=== PATIENT | male | born 1960 | race Caucasian/White ===

== ENCOUNTER 2017-02-08 14:29 | Inpatient (IN) | payer MEDICAID ==
[2017-02-08 15:19] LABS: % IMMATURE GRANULYOCYTES 0.3 % (0.0-1.1); ABSOLUTE IMMATURE GRANULOCYTES 0.01 10^3/uL (0.00-0.10); ADD DIFF? NO; ADD MORPH? NO; ADD SCAN? NO; ATYPICAL LYMPHOCYTE FLAG 10 (0-99); FRAGMENT RBC FLAG 0 (0-99); HEMATOCRIT 41.1 % (40.0-51.0); LEFT SHIFT FLG 0 (0-99); LIPEMIA HEMOLYSIS FLAG 90 (0-99); MEAN CELL HEMOGLOBIN 29.5 pg (27.9-34.1); MEAN CELL HEMOGLOBIN CONCENTR. 34.1 g/dL (32.4-36.7); MEAN CELL VOLUME 86.7 fL (81.5-99.8); MEAN PLATELET VOLUME 10.3 fL (8.7-11.7); PLATELET CLUMPS FLAG 0 (0-99); PLATELET COUNT 231 10^3/uL (150-400); RED BLOOD CELL COUNT 4.74 10^6/uL (4.40-6.38); RED CELL DISTRIBUTION WIDTH 13.8 % (11.5-15.2)
--- NOTE | 2017-02-08 15:19 | EDPHY ---
Mental Health General Previous Psychiatric History: previous inpatient psychiatric admission, previous ED visit related to suicidal ideations, substance abuse Smoking Status: Former smoker Time Patient Placed on Detainer: 15:10 Time Medically Cleared for Psychiatric Evaluation: 16:17 Time of Transfer of Care: 18:[address]:: Jeromy <Quynh Davidson - Last Filed: 02/08/17 17:45> <Anabelle Ruggiero - Last Filed: 02/09/17 06:38> Course: patient remained stable over course of my shift <Sergei Webster - Last Filed: 02/09/17 14:46> <Arvin Delgado - Last Filed: 02/10/17 05:53> <Abhinav Pinzon - Last Filed: 02/10/17 09:37> <Arthur Palencia - Last Filed: 02/10/17 11:55> Narrative: CHIEF COMPLAINT: suicidal ideations HISTORY OF PRESENT ILLNESS: 56-year-old male presents emergency department voluntarily for suicidal ideations. Patient has a history of depression, reports he stops taking his depression medicine 1 month ago. Patient reports increasing depression over the last couple months. He reports a plan to commit suicide with an insulin overdose. Patient is an insulin-dependent diabetic. Patient reports increased life stressors with financial problems. He reports a cocaine abuse history, no use for 1 month due to lack of finances. He denies other drug use. No alcohol use. He reports he has no access to a firearm. Patient denies homicidal ideations, auditory or visual hallucinations. Patient has a brother in [place] who convinced him to come to the emergency department today, his roommate drove him here. Patient reports he has been checking his blood sugars less and taking less insulin than he usually does also. REVIEW OF SYSTEMS: A comprehensive 10 point review of systems is otherwise negative aside from elements mentioned in the history of present illness. Physical Exam Gen: Alert and Oriented, NAD HEENT: PERRL, moist mucous membranes NECK: no meningismus CV: regular rate and regular rhythm PULM: CTAB, no wheezes ABDOMEN: soft, non tender to palpation, BS present BACK: No CVA tenderness NEURO: Neurologically grossly intact EXTREMITIES: normal appearing SKIN: superficial abrasions and scabs to bilateral forearms PSYCH: Reports suicidal ideations, flat affect. (Quynh Davidson) 0700: I assumed care of this patient from Dr. Ruggiero at shift change. ( Sergei Webster) PHYSICIAN DOCUMENTATION: The patient was evaluated and managed by the nurse practitioner and myself. I have reviewed the chart and agree with the findings and plan of care as documented. In addition, I examined the patient myself at 1955. History confirmed as no medications for 1 month, also has a lot of financial trouble recently. 2024: Glucose 353, 10 units subcutaneous insulin. Usually takes 54 units of Lantus at night, 50 units ordered at 8:46 p.m. Signed out to Bahman at 2300 with psychiatric evaluation still pending. 153: 02/09 discussed with Jazmin that in my clinical judgment the patient is medically cleared and stable for psychiatric evaluation. 1737: Placed on a mental health hold by myself for suicidal ideation, plan for psychiatric admission. 1742: glucose 271. 2330: Received 50 Lantus again. The patient will be transferred to [facility] for inpatient psychiatric hospital bed not available at this facility, in stable condition; accepting physician is Dr. French. I am the secondary supervising physician. (Abhinav Pinzon) The patient has been formally accepted forward transferred to the inpatient psychiatric unit at [facility] at 12:00 p.m.. I reviewed the EMTALA transfer form. The patient will be transferred from our ED to the inpatient psychiatric unit. (Arthur Palencia) Medical Decision Makin-Report passed on to Dr. Pinzon at the end of my shift pending psychiatric evaluation. Pt has been placed on the insulins sliding scale with ACHS glucose checks. (Quynh Davidson) 6:45 a.m.- The patient has been stable throughout my shift. He is awaiting psychiatric evaluation this morning. His last blood sugar was in the 200s after receiving his nightly Lantus dose. He is currently written for an insulin sliding scale. At change of shift, the case will be signed out to Dr. Webster. (Anabelle Ruggiero) 0554: No acute events overnight. Patient resting comfortably. Here on M1 hold depression and diabetes. Patient is supposed to go to [address] [place] [address] at 11:00 a.m.. Patient signed over to Dr. Palencia at 7:00 a.m. shift change. (Arvin Delgado) - Objective Vital Signs: Initial Vital Signs Temperature (C) 36.8 C 02/08/17 14:30 Heart Rate 91 02/08/17 14:30 Respiratory Rate 18 02/08/17 14:30 Blood Pressure 153/99 H 02/08/17 14:30 O2 Sat (%) 96 02/08/17 14:30 O2 Delivery Mode Room Air Allergies/Adverse Reactions: Cephalosporins Allergy (Severe, Verified 02/08/17 14:33) Swelling/neck,face,throat Home Medications: Medication Instructions Recorded ARIPiprazole [Abilify 5 mg (*)] 5 mg PO DAILY 07/17/12 Levothyroxine [Synthroid 137 mcg 137 mcg PO DAILY@0600 04/08/14 (*)] Insulin Aspart [novoLOG] 0 - 7 unit SC TIDMEAL 04/17/14 Atorvastatin Calcium [Lipitor 40 40 mg PO DAILY 03/25/15 mg (*)] Insulin Detemir [Levemir] 32 unit SQ BID 08/28/15 Nortriptyline HCl [Pamelor] 75 mg PO DAILY 08/28/15 Calcium Carbonate [Oyster Shell 1,000 mg PO DAILY 10/30/15 Calcium 500 mg (*)] Cholecalciferol Vit D3 [Vitamin D3 1,000 units PO DAILY 10/30/15 (*)] Sertraline HCl 02/08/17 Medications Given: Discontinued Medications Ibuprofen (Motrin Oral Solution) 600 mg PO EDNOW ONE Stop: 02/08/17 18:37 Last Admin: 02/08/17 18:40 Dose: 600 mg Insulin Glargine (Lantus Syringe) 50 units SC EDNOW ONE Stop: 02/09/17 22:47 Last Admin: 02/08/17 23:30 Dose: 50 units Insulin Glargine (Lantus Syringe) 50 units SC EDNOW ONE Stop: 02/09/17 23:31 Last Admin: 02/09/17 23:57 Dose: 50 units Insulin Human Regular (Humulin R) 10 unit SC EDNOW ONE Stop: 02/08/17 22:26 Last Admin: 02/08/17 22:38 Dose: 10 unit Laboratory Results: Laboratory Results 02/08/17 15:09 02/08/17 15:09 02/10/17 02/10/17 02/10/17 11:34 07:49 05:01 POC Hgb 15.6 gm/dL gm/dL 15.0 gm/dL gm/dL 15.3 gm/dL gm/dL (14.5-17.3) (14.5-17.3) (14.5-17.3) POC Hct 46 % % 44 % % 45 % % (42.8-50.6) (42.8-50.6) (42.8-50.6) POC Sodium 136 mEq/L mEq/L 140 mEq/L mEq/L 139 mEq/L mEq/L (134-144) (134-144) (134-144) POC Potassium 4.4 mEq/L mEq/L 3.7 mEq/L mEq/L 3.6 mEq/L mEq/L (3.3-5.0) (3.3-5.0) (3.3-5.0) POC Chloride 94 mEq/L L mEq/L 99 mEq/L mEq/L 100 mEq/L mEq/L (96-108) (96-108) (96-108) POC BUN 11 mg/dL mg/dL 9 mg/dL mg/dL 10 mg/dL mg/dL (7-23) (7-23) (7-23) POC Creatinine 0.9 mg/dL mg/dL 0.8 mg/dL mg/dL 0.8 mg/dL mg/dL (0.8-1.5) (0.8-1.5) (0.8-1.5) POC Glucose 281 mg/dL H mg/dL 101 mg/dL H mg/dL 129 mg/dL H mg/dL (70-100) (70-100) (70-100) Point of Care Results: 02/10/17 02/10/17 02/10/17 05:01 07:49 11:34 POC Sodium 139 140 136 POC Potassium 3.6 3.7 4.4 POC Chloride 100 99 94 L POC BUN 10 9 11 POC Creatinine 0.8 0.8 0.9 POC Glucose 129 H 101 H 281 H Departure <Quynh Davidson - Last Filed: 02/08/17 17:45> <Anabelle Ruggiero - Last Filed: 02/09/17 06:38> <Sergei Webster - Last Filed: 02/09/17 14:46> <Arvin Delgado - Last Filed: 02/10/17 05:53> <Abhinav Pinzon - Last Filed: 02/10/17 09:37> <Arthur Palencia - Last Filed: 02/10/17 11:55> - Departure Disposition: [facility] IP Clinical Impression: Severe major depression Condition: Fair Referrals: NONE *PRIMARY CARE P,. [Primary Care Provider] - As per Instructions
[2017-02-08 15:32] LABS: ANION GAP 11 mEq/L (8-16); CALCIUM 8.9 mg/dL (8.5-10.4); CARBON DIOXIDE 25 mEq/l (22-31); CHLORIDE 98 mEq/L (97-110); CREATININE 0.9 mg/dL (0.7-1.3); ETHANOL SERUM < 10 mg/dL (0-10); GLOMERULAR FILTRATION RATE > 60; GLUCOSE 377 mg/dL (70-100); POTASSIUM 3.9 mEq/L (3.5-5.2); SODIUM 134 mEq/L (134-144)
[2017-02-08] MEDS ORDERED: D50W 25 GM/50 ML SYR IVP PRN (15:38)
[2017-02-08] MEDS: INSULIN REGULAR HUMAN 100 UNIT/ML SC SCH ×2 (16:12→18:09)
[2017-02-08] MEDS ORDERED: IBUPROFEN SUSP 100 MG/5 ML UDCUP PO ONE (18:36)
[2017-02-08] MEDS ORDERED: IBUPROFEN 600 MG TAB PO ONE (18:41)
[2017-02-08] MEDS ORDERED: INSULIN REGULAR HUMAN 100 UNIT/ML SC ONE (22:25)
[2017-02-09] MEDS: INSULIN REGULAR HUMAN 100 UNIT/ML SC SCH ×5 (07:45→22:33)
[2017-02-09] MEDS ORDERED: INSULIN GLARGINE 100 UNITS/ML SYRINGE SC ONE ×2 (22:46→23:30)
[2017-02-10] MEDS: INSULIN REGULAR HUMAN 100 UNIT/ML SC SCH ×5 (08:04→21:04)
[2017-02-10] MEDS: CALCIUM CARBONATE 500 MG TAB PO SCH (17:42)
--- NOTE | 2017-02-10 18:46 | BCON ---
[f rep st] BEHAVIORAL HEALTH CONSULTATION INTERNAL MEDICINE CONSULTATION DATE OF CONSULTATION: 02/10/2017 REFERRING PHYSICIAN: Humberto Motta MD REASON FOR REFERRAL: Medical clearance for inpatient behavioral health stay. HISTORY OF PRESENT ILLNESS: The patient came to the emergency department with complaints of depression and suicidality. He reportedly had stopped taking his antidepressants for about a month and he was planning to commit suicide with an insulin overdose. He reports he had a recent relapse of cocaine addiction. Currently, he complains of itching, and he reports that he has an ulceration on his scrotum, which is there because he was scratching his itch. He says he has been bathing more frequently recently to try to improve this condition. PAST MEDICAL HISTORY: 1. Diabetes mellitus type 1. 2. History of diabetic ketoacidosis. 3. History of hypoglycemia. 4. Osteoporosis. 5. Cocaine addiction. 6. Dyslipidemia. 7. Hypothyroidism. 8. Depression. PAST SURGICAL HISTORY: He reports he has had surgery for a right hip fracture, a foot fracture, and 1 more fracture which I do not recall. Two of the fractures were consequence of snowboarding and the hip fracture consequence of a fall while hypoglycemic. MEDICATIONS: Prior to admission: 1. Aripiprazole 5 mg p.o. daily. 2. Levothyroxine 137 mcg p.o. daily. 3. Insulin aspartate 0-7 units subcutaneous t.i.d. before meals. 4. Atorvastatin 40 mg p.o. daily. 5. Insulin detemir 32 units subcutaneous b.i.d., though he reports that he was taking 54 units of Lantus q.h.s. 6. Nortriptyline 75 mg p.o. daily. 7. Calcium carbonate 1000 mg p.o. daily. 8. Cholecalciferol 1000 units p.o. daily. 9. Sertraline. ALLERGIES: There is an allergy listed to cephalosporins. 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 He had to stop working because of cognitive impairment. 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 He lives with a roommate. He has local children and grandchildren with whom he has some contact. He is a former smoker and he has history of cocaine addiction. FAMILY HISTORY: Noncontributory. REVIEW OF SYSTEMS: He has generalized pruritus that is not improved with more frequent showering. He has skin excoriations including an ulceration on his scrotum. He denies fevers, chills, weight gain, weight loss, cough, dyspnea, chest pain, palpitations, nausea, vomiting, constipation, diarrhea, dysuria, urinary frequency, joint pain or joint swelling, and otherwise a 10-point review of systems is negative. PHYSICAL EXAMINATION: VITAL SIGNS: Blood pressure is 124/74, heart rate is 80 , respiratory rate is 16, oxygen saturation is 95% on room air, temperature is 37.1 degrees centigrade. His weight is 90.7 kg for a body mass index of 27.9. GENERAL: This is a well-nourished, well-developed man, appears chronologic age , cooperative, and in no acute distress. HEENT: Extraocular movements are intact. Pupils are equal, round, and reactive to light. Mucous membranes are moist. Dentition is in good condition. Airway is somewhat crowded, Mallampati class 3. NECK: Supple. HEART: Regular rate and rhythm with no murmurs, rubs , or gallops. LUNGS: Clear to auscultation bilaterally. ABDOMEN: Soft, nontender, nondistended with normoactive bowel sounds. EXTREMITIES: There is no cyanosis, clubbing, or edema. NEUROLOGIC: He is alert and oriented x3. Cranial nerves 2-12 are grossly intact. There is no focal weakness. Sensation is intact to light touch, and gait is within normal limits. SKIN: He has multiple excoriations on his forearms. There is a 0.5 x 1.5 cm shallow ulceration on his scrotum just anterior to the perineum. It has some eschar on it. There is no erythema. There is no purulence. LABORATORY STUDIES: Drawn in the emergency department: He had multiple determinations of basic metabolic profile. Overall, renal function and electrolytes were within normal limits. He had elevated blood sugars at 353 when he first presented to the emergency department, and otherwise ranging from 68-386 and today, before lunch, he was at 281. He additionally had multiple determinations of hemoglobin and hematocrit for reasons I do not understand. Upon presentation, on 02/08/2017, he had a low white blood cell count at 3.31 with a deficit of absolute lymphocytes, otherwise CBC was within normal limits. ASSESSMENT/RECOMMENDATIONS: 1. Depression, pending further evaluation and management, per Psychiatry and the mental health team. 2. Diabetes mellitus type 1. Continue Lantus at 54 units q.h.s. and sliding scale of regular insulin. The sliding scale that has been ordered is rather conservative. I have also ordered 5 units of regular insulin before each meal. We will follow his blood sugars and will adjust insulin as needed. 3. Pruritus. Generalized, with no rash, of unclear etiology. This will be investigated further by checking a TSH. He is more likely with hyperthyroidism than with hypothyroidism. Additionally, liver function tests will be determined regarding possible elevated bilirubin, though he does not show signs or symptoms of jaundice, otherwise, and an HIV test will be obtained. 4. Osteoporosis with history of fractures. Continue calcium supplementation. I have ordered a vitamin D level, and he should be on vitamin D supplementation as well. We will await the result of the vitamin D level. 5. Cocaine addiction. He might benefit from specific substance abuse counseling. I see no contraindications to this patient's continued stay in the inpatient behavioral health unit, in particular, his pruritus is not consistent with scabies or other infectious etiology. Thank you very much for including me in the care of this patient, and please do not hesitate to contact me or the hospitalist service should there be need for further medical evaluation. /[id number]/MODL MTDD
[2017-02-10 20:27] LABS: ALANINE AMINOTRANSFERASE 46 IU/L (21-72); ALBUMIN 3.8 g/dL (3.5-5.0); ALKALINE PHOSPHATASE 107 IU/L (38-126); ASPARTATE AMINOTRANSFERASE 39 IU/L (17-59); BILIRUBIN,TOTAL 0.6 mg/dL (0.1-1.4); BILIRUBIN-CONJUGATED 0.4 mg/dL (0.0-0.5); BILIRUBIN-UNCONJUGATED 0.2 mg/dL (0.0-1.1); TOTAL PROTEIN 6.7 g/dL (6.3-8.2)
[2017-02-10 20:42] LABS: VITAMIN D 25-HYDROXY TOTAL 16.8 ng/mL (30-100)
[2017-02-10] MEDS ORDERED: NORTRIPTYLINE HCL 50 MG CAP PO SCH (21:00)
[2017-02-10] MEDS: AQUAPHOR OINTMENT 3.5 OZ JAR TP SCH (21:03)
[2017-02-10] MEDS: INSULIN GLARGINE 100 UNITS/ML SYRINGE SC SCH (21:04)
[2017-02-11] MEDS: INSULIN REGULAR HUMAN 100 UNIT/ML SC SCH ×7 (08:17→20:34)
[2017-02-11] MEDS: CALCIUM CARBONATE 500 MG TAB PO SCH (08:45)
[2017-02-11] MEDS: ARIPiprazole 5 MG TAB PO SCH (08:45)
[2017-02-11] MEDS: ATORVASTATIN CALCIUM 20 MG TAB PO SCH (08:45)
[2017-02-11] MEDS: SERTRALINE HCL 50 MG TAB PO SCH (08:45)
[2017-02-11] MEDS: LEVOTHYROXINE 137 MCG TAB PO SCH (10:47)
[2017-02-11] MEDS: AQUAPHOR OINTMENT 3.5 OZ JAR TP SCH ×2 (10:47→20:35)
[2017-02-11] MEDS: CHOLECALCIFEROL VIT D3 2,000 UNITS TAB/CAP PO SCH (10:55)
--- NOTE | 2017-02-11 13:42 | BAPA ---
[f rep st] ADMISSION PSYCHIATRIC ASSESSMENT PATIENT IDENTIFICATION: The patient presents as a 56-year-old, , white male, father of 2 who is currently unemployed, lives rent-free with a male friend in the friend's apartment; he is an open case with [facility], followed for prescriptions by Dr. Castillo; he is admitted acutely to [address] [place] [address] for complaints of a depressive crisis with suicidal ideation, including a plan to overdose on insulin, as well as substance abuse complaints as referenced below. CHIEF COMPLAINT: "I know I needed help; my brother called from [place] and said to go to the emergency room." HISTORY OF PRESENT ILLNESS: The patient presents with a chronic history for syndromal depression of varying intensity extending over a period of at least 20 + years. His initial treatment contact with Psychiatry occurred 20 years ago when he initiated outpatient treatment for depressive acuity in the context of marital conflict with his second . He began a treatment which included prescribed psychoactive medication and psychotherapy. He states he has continued to take prescribed psychiatric medications over the past 20 years, as an ongoing open case with [facility], current prescriber is Dr. Castillo. He states he has had a positive response to medications, albeit not leading to remission, as well as he has had multiple incidents of breaking through medication regimens with worsening symptoms. He states he also briefly tried psychotherapy, which was not helpful, and has not been engaged in psychosocial programming or psychotherapy for a number of years. More recently , the patient experienced a progressive intensification of syndromal depressive symptoms which have included dysphoric mood, diminished psychomotor energy, social withdrawal, anhedonia, and persistent suicidal ideation. He had been terminated from his last job and is experiencing increasing financial stress, has accumulated a 12,000 dollar debt on his credit cards. The patient unilaterally stopped his home medications which included Abilify 5 mg daily, Zoloft 50 mg daily, and nortriptyline 75 mg at h.s. After stopping his medications, his syndromal depression intensified to crisis proportions, including suicidal planning to kill himself with an insulin overdose. This progression eventuated in his roommate becoming concerned, calling brother who called back and persuaded the patient to come with roommate to the [facility] emergency room. He was evaluated medically and found on physical exam to have some excoriated areas on his arms and scrotum consistent with his complaints of generalized pruritus, etiology unclear. Otherwise, physical exam was unremarkable. He cooperated with the consultation by [facility], who affirmed patient's depressive acuity. There is no evidence for psychosis, but patient did disclose his syndromal history, including suicidality with a plan to overdose on insulin. He was deemed a high risk for suicide and/or self- destructive behavior and sent on for admission to [address] [place] [address] on an M1 hold. Lab screens done in the emergency room revealed a glycohemoglobin of 10, diminished level of 25-OH vitamin D at 16.8. Patient's TSH was elevated at 42.2. HIV antibodies 1 and 2 were negative. Patient's BMP was within normal limits other than an elevated blood glucose of 386. Hemoglobin and hematocrit were unremarkable. Liver function tests were within normal limits as well as total protein and albumin levels. Urinalysis and serum toxic screen not reported. PAST PSYCHIATRIC HISTORY: Patient has an extended history for syndromal depression and has been taking prescribed medications as an open case with the [facility] for the last 20 years. Patient has a history of 5 inpatient incidents of treatment between 2011 and 2013 for similar depressive crises with driven suicidal thinking. Patient denies any history of actual suicide attempts. Patient's current prescribing psychiatrist is Dr. Castillo. MEDICAL HISTORY: Patient complains of generalized pruritus and has several excoriated areas on forearm and scrotum secondary to intense itching; S/P diabetes mellitus type 1, history of diabetic ketoacidosis, history of hypoglycemia, osteoporosis, dyslipidemia, hypothyroidism. ALLERGIES: Patient has no known food or environmental allergies; has a medication allergy to cephalosporins. MEDICAL REVIEW OF SYSTEMS: Negative system review other than for the generalized pruritus identified in the admission medical assessment, etiology unclear. SUBSTANCE ABUSE HISTORY: Patient has a longstanding history of marijuana dependence, beginning use at age 16 and developing a daily use pattern in his early 20s; patient denies any history of other substance abuse or alcohol abuse until age 52 when he became an intermittent abuser of cocaine; patient reported he last used cocaine on 02/04 and last regular use cocaine a month ago given his financial limitations. LEGAL HISTORY: Patient denies any history of legal issues and no current issues. PERSONAL HISTORY/FAMILY HISTORY: Patient was born and raised in [place] by his biologic parents and had 2 older brothers. He remembers a childhood and adolescence which was free of abuse or trauma but also experienced in the relationship with his father as "not living up to his expectations and being a good enough son." Patient stated an ongoing sense throughout his life of "underperforming" in father's eyes. This theme continues to disturb him since the of his father 3 years ago. Patient graduated high school, served in the [employer] from age [age] as well as gained several college credits. 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 He states he was terminated in the job for ineffectiveness in 2012 after an extended period of compromised functioning which he thinks was secondary to his daily marijuana use and syndromal depression. 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 Patient was the first time from age 21 through a divorce at age 28. He states this was his first love but that his first was immature and wanted to live "a single life."; this requested divorce. Patient fathered his first child, his daughter, who is currently age 30, during this first marriage. Patient was the second time for approximately 20 years, at age 52. This marriage produced patient's son, who is age 18. Patient states his second marriage was chronically conflicted, in part because of conflicting lifestyles; he described his as a devout [employer] who disapproved of his non-restoration attitude and daily use of THC. The patient has been single since and has been living since his second divorce with a friend from the [employer] who has allowed him to live in the friend's apartment rent-free. The patient states that his 2 older brothers have been substance users. His brothers have been, per his report, relatively stable psychiatrically. One brother is an intermittent methamphetamine user and is a retired truck spotter. The brother he is closest to is a college graduate as an electrical machinist and continues to work successfully, uses THC daily. It was this brother, who lives in [place], that called to mobilize the patient to come to the emergency room. ADMISSION MENTAL STATUS EXAM: On direct exam, the patient presents as an adult male looking his stated age. His observed gait and station are normal; he is cooperative and conversant with the initial contact. Patient's mood state is severely dysphoric, affect constricted and blunted; patient's thought process evidences no psychosis, is organized, somewhat concrete but reality-based. Patient is openly disclosing and answering my questions in this initial contact. His speech is slowed and soft. He makes good eye contact throughout the session. Intelligence appears average, associated with his vocabulary, language, syntax, and organization. He is alert and oriented x4. Memory functioning across immediate, recent, and remote domains is fully intact. Patient evidences intact impulse control. His thought process is linear, organized, and goal-focused. Patient appears to be invested in the inpatient intervention to maintain himself safely, get symptom relief, and formulate a forward path for his life and for treatment postdischarge. His self-care functioning appears to be fully intact. He does describe a severe depressive syndrome consistent with neurovegetative signs and symptoms. He describes spending extended periods in bed for up to 24 hours per day, consistent with his complaints of social withdrawal and anhedonia. He does acknowledge the active suicide plan to overdose with insulin but states "I could never do that because of my children"; he does describe himself as an invested and affective father. FORMULATION: The patient presents as a 56-year-old, twice-, white male with a history of extremely chronic syndromal depression of variable intensity. Over his 20-year course of treatment, primarily with medications, he has evidenced partial improvement along with recurring incidence of breakthrough symptoms. He states his medications have been changed regularly and that he has never achieved syndromal remission. He also suffers from an extended problem of marijuana dependence. He has been a daily user for a number of years until his recent financial crisis in which he has been unable to afford a daily use pattern but still uses intermittently. He also has a 4-year history of intermittent cocaine abuse which, again, has dropped off significantly secondary to financial restrictions. He denies abusive use of alcohol or other substances by history. His inpatient treatment will focus on restabilizing mental status, completing a workup which will explore his chronically depressed self-image for precise case formulation. We also will address his THC addiction and formulate a definitive discharge plan post completion of workup. I will currently maintain patient's resumption of home medications as well as will consult with Medicine to address his dyscontrolled IDDM and elevated TSH, both the result of the self-neglect in managing his medical conditions as an element in his life experience with this depressive acuity. ADMISSION DIAGNOSES: [place] I: 1. Major Depressive Disorder, extremely chronic in duration, episodic in pattern; currently in state of acute exacerbation including suicidal planning preadmission. 2. THC Use Disorder, chronic, severe, active preadmission. 3. Cocaine Use Disorder, moderate, intermittent, active prior to admission. [place] II: Deferred. [place] III: 1. Current active medical problem of generalized pruritus, etiology unclear below. 2. S/P past medical history as referenced above. [place] IV: Stressors, exacerbation of chronic syndromal depression, initial breakthrough on medications with increasing intensity since patient stopped using medications 4 weeks ago; financial stress; unemployment; social isolation. [place] V: Admission GAF 30. INITIAL TREATMENT PLAN: 1. Nursing, complete admission assessment; monitor patient for safety and suicidality; reinforce medication compliance; orient patient to the unit milieu and group program and reinforce participation. 2. Psychiatry, complete admission assessment; provide daily E/M contacts with focus on completing diagnostic workup, providing reintegrative psychotherapeutic sessions, assess for and manage psychiatric medication needs; link patient post workup to a definitive discharge plan with links in place at discharge. 3. Clinical Coordinator, daily contacts to expand the database including contact with collaterals; link patient to definitive discharge resources to begin at time of discharge. 4. Admission Medical Consultation, done per Dr. Velasquez. 5. Medications: Will continue patient on home medications as referenced above ; assess in first phase including contact with patient's prescribing community psychiatrist, Dr. Castillo. Prioritized Inpatient Goals: Stabilize mental status sufficient for discharge; complete diagnostic workup to formulate definitive discharge plans with links with [facility] for and links to discharge plan present at discharge. /[id number]/MODL MTDD
--- NOTE | 2017-02-11 17:06 | SOAPPROG ---
SOAP Progress Note Assessment/Plan: Assessment: Hypothyroidism: very high TSH at 42 most likely represents non-compliance. Continue current levothyroxine dose. Advise repeat TSH in 4 - 6 weeks. 02/11/17 17:05 Subjective: Labs reviewed Objective: Vital Signs Temp Pulse Resp BP Pulse Ox 36.3 C 98 15 96/56 L 95 02/11/17 06:00 02/11/17 06:00 02/11/17 06:00 02/11/17 06:00 02/11/17 06:00 ICD10 Worksheet Patient Problems: Problems Problem Status Onset Severe major depression Acute Hip pain Active Diabetes mellitus type 1 Acute Diabetes with ketoacidosis Acute Diabetic ketoacidosis Acute Hyperglycemia Acute Hypoglycemia due to type 1 diabetes mellitus Acute Major depressive disorder, recurrent episode, severe degree, without mention of psychotic behavior Acute
[2017-02-11] MEDS: NORTRIPTYLINE HCL 25 MG CAP PO SCH (20:35)
[2017-02-11] MEDS: INSULIN GLARGINE 100 UNITS/ML SYRINGE SC SCH (20:35)
[2017-02-12] MEDS: INSULIN REGULAR HUMAN 100 UNIT/ML SC SCH ×7 (07:41→20:31)
[2017-02-12] MEDS: ATORVASTATIN CALCIUM 20 MG TAB PO SCH (08:53)
[2017-02-12] MEDS: CHOLECALCIFEROL VIT D3 2,000 UNITS TAB/CAP PO SCH (08:53)
[2017-02-12] MEDS: CALCIUM CARBONATE 500 MG TAB PO SCH (08:53)
[2017-02-12] MEDS: SERTRALINE HCL 50 MG TAB PO SCH (08:53)
[2017-02-12] MEDS: ARIPiprazole 5 MG TAB PO SCH (08:53)
[2017-02-12] MEDS: AQUAPHOR OINTMENT 3.5 OZ JAR TP SCH ×2 (09:39→20:31)
[2017-02-12] MEDS: LEVOTHYROXINE 137 MCG TAB PO SCH (09:50)
--- NOTE | 2017-02-12 16:08 | SOAPPROG ---
SOAP Progress Note Assessment/Plan: Assessment:Patient with MDD reporting improvement in his mood. He is no longer suicidal. He is compliant with medications and treatment. Plan:Continue medications and treatment. 02/12/17 16:03 02/12/17 16:13 Subjective: He reports he came into the hospital because he was feeling suicidal. He is no longer feeling suicidal. He believes the medications are partially responsible for this. His sleep is fine. His appetite is good. He has been going to groups. He denies craving drugs or alcohol. Objective: Vital Signs Temp Pulse Resp BP Pulse Ox 36.7 C 93 14 93/53 L 96 02/12/17 06:00 02/12/17 06:00 02/12/17 06:00 02/12/17 06:00 02/12/17 06:00 male, appropriately dressed. Hair askew. NO odor detected. Good eye contact. Sitting on the side of his bed. Speech- Depressed tone of voice. Mood- "Fine." Affect- blunted. Thought Process- linear. Thought Content- No SI/HI. No AH/VH. - Time Spent With Patient Time Spent With Patient: 15 - Pending Discharge Pending Discharge Within 24 Hours: No Pending Discharge Within 48 Hours: No ICD10 Worksheet Patient Problems: Problems Problem Status Onset Severe major depression Acute Hip pain Active Diabetes mellitus type 1 Acute Diabetes with ketoacidosis Acute Diabetic ketoacidosis Acute Hyperglycemia Acute Hypoglycemia due to type 1 diabetes mellitus Acute Major depressive disorder, recurrent episode, severe degree, without mention of psychotic behavior Acute
[2017-02-12] MEDS: INSULIN GLARGINE 100 UNITS/ML SYRINGE SC SCH (20:32)
[2017-02-12] MEDS: NORTRIPTYLINE HCL 25 MG CAP PO SCH (20:33)
[2017-02-13] MEDS: INSULIN REGULAR HUMAN 100 UNIT/ML SC SCH ×7 (08:03→20:54)
[2017-02-13] MEDS: SERTRALINE HCL 50 MG TAB PO SCH (08:42)
[2017-02-13] MEDS: ARIPiprazole 5 MG TAB PO SCH (08:42)
[2017-02-13] MEDS: ATORVASTATIN CALCIUM 20 MG TAB PO SCH (08:42)
[2017-02-13] MEDS: CHOLECALCIFEROL VIT D3 2,000 UNITS TAB/CAP PO SCH (08:42)
[2017-02-13] MEDS: CALCIUM CARBONATE 500 MG TAB PO SCH (08:42)
[2017-02-13] MEDS: AQUAPHOR OINTMENT 3.5 OZ JAR TP SCH ×2 (09:00→20:54)
[2017-02-13] MEDS: LEVOTHYROXINE 137 MCG TAB PO SCH (11:04)
--- NOTE | 2017-02-13 12:31 | SOAPPROG ---
SOAP Progress Note Assessment/Plan: Assessment:Patient with MDD reporting improvement in his mood. He is no longer suicidal. He is compliant with medications and treatment. He still looks depressed. Plan:Continue medications and treatment. 02/12/17 16:03 02/12/17 16:13 02/13/17 12:31 02/13/17 12:31 Subjective: He reports waking pretty refreshed today. He denies suicidal ideation or depression. He denies pain. Objective: Vital Signs Temp Pulse Resp BP Pulse Ox 36.6 C 91 16 97/56 L 96 02/13/17 06:00 02/13/17 06:00 02/13/17 06:00 02/13/17 06:00 02/13/17 06:00 male, sitting on the side of his bed. Good eye contact. Speech- terse statements. Mood- "Fine." Affect- Incongruent, blunted. Thought Process- guarded. Thought Content -NO SI/HI. NO AH/VH. - Time Spent With Patient Time Spent With Patient: 15 - Pending Discharge Pending Discharge Within 24 Hours: No ICD10 Worksheet Patient Problems: Problems Problem Status Onset Severe major depression Acute Hip pain Active Diabetes mellitus type 1 Acute Diabetes with ketoacidosis Acute Diabetic ketoacidosis Acute Hyperglycemia Acute Hypoglycemia due to type 1 diabetes mellitus Acute Major depressive disorder, recurrent episode, severe degree, without mention of psychotic behavior Acute
[2017-02-13] MEDS: INSULIN GLARGINE 100 UNITS/ML SYRINGE SC SCH (20:54)
[2017-02-13] MEDS: NORTRIPTYLINE HCL 25 MG CAP PO SCH (20:55)
--- NOTE | 2017-02-14 07:05 | SOAPPROG ---
SOADELE Progress Note Assessment/Plan: Assessment: Plan: 02/14/17 07:04 DAY ' UPDATE: Objective: Vital Signs Temp Pulse Resp BP Pulse Ox 36.3 C 96 14 113/71 95 02/14/17 01:39 02/14/17 01:39 02/14/17 01:39 02/14/17 01:39 02/14/17 01:39 ICD10 Worksheet Patient Problems: Problems Problem Status Onset Severe major depression Acute Hip pain Active Diabetes mellitus type 1 Acute Diabetes with ketoacidosis Acute Diabetic ketoacidosis Acute Hyperglycemia Acute Hypoglycemia due to type 1 diabetes mellitus Acute Major depressive disorder, recurrent episode, severe degree, without mention of psychotic behavior Acute
[2017-02-14] MEDS: INSULIN REGULAR HUMAN 100 UNIT/ML SC SCH ×7 (08:11→21:55)
[2017-02-14] MEDS: SERTRALINE HCL 50 MG TAB PO SCH (08:43)
[2017-02-14] MEDS: ATORVASTATIN CALCIUM 20 MG TAB PO SCH (08:43)
[2017-02-14] MEDS: ARIPiprazole 5 MG TAB PO SCH (08:43)
[2017-02-14] MEDS: CALCIUM CARBONATE 500 MG TAB PO SCH (08:43)
[2017-02-14] MEDS: CHOLECALCIFEROL VIT D3 2,000 UNITS TAB/CAP PO SCH (08:44)
[2017-02-14] MEDS: AQUAPHOR OINTMENT 3.5 OZ JAR TP SCH ×2 (08:53→22:28)
--- NOTE | 2017-02-14 11:07 | SOAPPROG ---
SOAP Progress Note Assessment/Plan: Assessment: Plan: 02/14/17 1058 DAY ' UPDATE: Nursing reports pt has evidenced descriptive improvement over the weekend - complying with cares/meds, visible in milieu; beginning to attend groups; behaviorally stable. ON EXAM: presents as calm cooperative , conversant; blunted affect, depressive facies and mood but state he is felling a "little better"; open disclosure about further history and does acknowledge that his daily THC use dulls his thinking and has played a role in his ineffectiveness at work - has led to multiple job losses over past 4 years. He states his motivation to improve in the hospital and willingness to formulate definitive DC plan as he agrees seeing his psychiatrist q 8 wks is an insufficient community treatment plan; also accepts that attemtping to get disability status won't work given his work histroy and treatablity. ASSESSMENT/PLAN: incrementally less depressed b/w significant residual/ call to Dr Castillo pending to discull case and medication planning; will increase Zoloft today to 100 mg qd. Objective: Vital Signs Temp Pulse Resp BP Pulse Ox 36.3 C 96 14 113/71 95 02/14/17 01:39 02/14/17 01:39 02/14/17 01:39 02/14/17 01:39 02/14/17 01:39 ICD10 Worksheet Patient Problems: Problems Problem Status Onset Severe major depression Acute Hip pain Active Diabetes mellitus type 1 Acute Diabetes with ketoacidosis Acute Diabetic ketoacidosis Acute Hyperglycemia Acute Hypoglycemia due to type 1 diabetes mellitus Acute Major depressive disorder, recurrent episode, severe degree, without mention of psychotic behavior Acute
[2017-02-14] MEDS: LEVOTHYROXINE 137 MCG TAB PO SCH (11:11)
[2017-02-14] MEDS ORDERED: SERTRALINE HCL 50 MG TAB PO ONE (12:30)
[2017-02-14] MEDS: NORTRIPTYLINE HCL 25 MG CAP PO SCH (21:42)
[2017-02-14] MEDS: INSULIN GLARGINE 100 UNITS/ML SYRINGE SC SCH (21:42)
[2017-02-15] MEDS: LEVOTHYROXINE 137 MCG TAB PO SCH (06:15)
[2017-02-15] MEDS: INSULIN REGULAR HUMAN 100 UNIT/ML SC SCH ×7 (08:10→21:05)
[2017-02-15] MEDS ORDERED: SERTRALINE HCL 100 MG TAB PO SCH (09:00)
[2017-02-15] MEDS: ARIPiprazole 5 MG TAB PO SCH (09:54)
[2017-02-15] MEDS: CALCIUM CARBONATE 500 MG TAB PO SCH (09:54)
[2017-02-15] MEDS: CHOLECALCIFEROL VIT D3 2,000 UNITS TAB/CAP PO SCH (09:55)
[2017-02-15] MEDS: ATORVASTATIN CALCIUM 20 MG TAB PO SCH (09:55)
[2017-02-15] MEDS: AQUAPHOR OINTMENT 3.5 OZ JAR TP SCH ×2 (10:31→21:03)
--- NOTE | 2017-02-15 11:12 | SOAPPROG ---
SOAP Progress Note Assessment/Plan: Assessment: Plan: 02/14/17 1058 UPDATE: Nursing reports pt has evidenced descriptive improvement over the weekend - complying with cares/meds, visible in milieu; beginning to attend groups; behaviorally stable. ON EXAM: presents as calm cooperative , conversant; blunted affect, depressive facies and mood but state he is felling a "little better"; open disclosure about further history and does acknowledge that his daily THC use dulls his thinking and has played a role in his ineffectiveness at work - has led to multiple job losses over past 4 years. He states his motivation to improve in the hospital and willingness to formulate definitive DC plan as he agrees seeing his psychiatrist q 8 wks is an insufficient community treatment plan; also accepts that attempting to get disability status won't work given his work history and treatability. ASSESSMENT/PLAN: incrementally less depressed b/w significant residual/ call to Dr Castillo pending to discuss case and medication planning; will increase Zoloft today to 100 mg qd. 02/15/17 10:43 DAY UPDATE: Nursing Objective: Vital Signs Temp Pulse Resp BP Pulse Ox 36.8 C 92 12 101/69 97 02/15/17 06:00 02/15/17 06:00 02/15/17 06:00 02/15/17 06:00 02/15/17 06:00 ICD10 Worksheet Patient Problems: Problems Problem Status Onset Severe major depression Acute Hip pain Active Diabetes mellitus type 1 Acute Diabetes with ketoacidosis Acute Diabetic ketoacidosis Acute Hyperglycemia Acute Hypoglycemia due to type 1 diabetes mellitus Acute Major depressive disorder, recurrent episode, severe degree, without mention of psychotic behavior Acute
--- NOTE | 2017-02-15 12:57 | SOAPPROG ---
SOAP Progress Note Assessment/Plan: Assessment: Plan: 02/14/17 1058 UPDATE: Nursing reports pt has evidenced descriptive improvement over the weekend - complying with cares/meds, visible in milieu; beginning to attend groups; behaviorally stable. ON EXAM: presents as calm cooperative , conversant; blunted affect, depressive facies and mood but state he is felling a "little better"; open disclosure about further history and does acknowledge that his daily THC use dulls his thinking and has played a role in his ineffectiveness at work - has led to multiple job losses over past 4 years. He states his motivation to improve in the hospital and willingness to formulate definitive DC plan as he agrees seeing his psychiatrist q 8 wks is an insufficient community treatment plan; also accepts that attempting to get disability status won't work given his work history and treatability. ASSESSMENT/PLAN: incrementally less depressed b/w significant residual/ call to Dr Castillo pending to discuss case and medication planning; will increase Zoloft today to 100 mg qd. 02/15/17 10:43 DAY ' UPDATE: Nursing reports slow-paced progress continues; compliant with cares/meds ; residual vegetative sx but im;toving; remains isolative but gradually more visible in milieu and attending selective groups. ON EXAM: again blunted but cooperative; states SI diminished but not yet fully resolved; syndromal residual updated, meds discussed, ineffective engagement in medical/psychiatric rx engagement [employer] discussed at length; anticipate involving family, [facility], and [facility] in formulating definitive DC plan which states he's ready to invest in. States he's not used THC for 3months, had been active with cocaine [employer] but will invest in full sobriety post DC. ASSESSMENT/PLAN: residual syndromal depession; slow-paced improvement/ Zoloft increased to 150 mg qam; case reviewed with Dr. Castillo; CP reviewed with Nursing Objective: Vital Signs Temp Pulse Resp BP Pulse Ox 36.8 C 92 12 101/69 97 02/15/17 06:00 02/15/17 06:00 02/15/17 06:00 02/15/17 06:00 02/15/17 06:00 ICD10 Worksheet Patient Problems: Problems Problem Status Onset Severe major depression Acute Hip pain Active Diabetes mellitus type 1 Acute Diabetes with ketoacidosis Acute Diabetic ketoacidosis Acute Hyperglycemia Acute Hypoglycemia due to type 1 diabetes mellitus Acute Major depressive disorder, recurrent episode, severe degree, without mention of psychotic behavior Acute
[2017-02-15] MEDS: NORTRIPTYLINE HCL 25 MG CAP PO SCH (21:01)
[2017-02-15] MEDS: INSULIN GLARGINE 100 UNITS/ML SYRINGE SC SCH (21:10)
[2017-02-16] MEDS: LEVOTHYROXINE 137 MCG TAB PO SCH (06:06)
--- NOTE | 2017-02-16 07:40 | SOAPPROG ---
SOAP Progress Note Assessment/Plan: Assessment: Plan: 02/14/17 1058 ' UPDATE: Nursing reports pt has evidenced descriptive improvement over the weekend - complying with cares/meds, visible in milieu; beginning to attend groups; behaviorally stable. ON EXAM: presents as calm cooperative , conversant; blunted affect, depressive facies and mood but state he is felling a "little better"; open disclosure about further history and does acknowledge that his daily THC use dulls his thinking and has played a role in his ineffectiveness at work - has led to multiple job losses over past 4 years. He states his motivation to improve in the hospital and willingness to formulate definitive DC plan as he agrees seeing his psychiatrist q 8 wks is an insufficient community treatment plan; also accepts that attempting to get disability status won't work given his work history and treatability. ASSESSMENT/PLAN: incrementally less depressed b/w significant residual/ call to Dr Castillo pending to discuss case and medication planning; will increase Zoloft today to 100 mg qd. 02/15/17 10:43 ' UPDATE: Nursing reports slow-paced progress continues; compliant with cares/meds ; residual vegetative sx but im;toving; remains isolative but gradually more visible in milieu and attending selective groups. ON EXAM: again blunted but cooperative; states SI diminished but not yet fully resolved; syndromal residual updated, meds discussed, ineffective engagement in medical/psychiatric rx engagement HOME HEALTH MANAGER discussed at length; anticipate involving family, [facility], and [facility] in formulating definitive DC plan which states he's ready to invest in. States he's not used THC for 3months, had been active with cocaine HOME HEALTH MANAGER but will invest in full sobriety post DC. ASSESSMENT/PLAN: residual syndromal depession; slow-paced improvement/ Zoloft increased to 150 mg qam; case reviewed with Dr. Castillo; CP reviewed with Nursing 02/16/17 07:38 DAY UPDATE: Objective: Vital Signs Temp Pulse Resp BP Pulse Ox 36.7 C 90 14 107/58 L 97 02/16/17 06:00 02/16/17 06:00 02/16/17 06:00 02/16/17 06:00 02/16/17 06:00 ICD10 Worksheet Patient Problems: Problems Problem Status Onset Severe major depression Acute Hip pain Active Diabetes mellitus type 1 Acute Diabetes with ketoacidosis Acute Diabetic ketoacidosis Acute Hyperglycemia Acute Hypoglycemia due to type 1 diabetes mellitus Acute Major depressive disorder, recurrent episode, severe degree, without mention of psychotic behavior Acute
[2017-02-16] MEDS ORDERED: SERTRALINE HCL 100 MG TAB PO SCH (09:00)
[2017-02-16] MEDS: INSULIN REGULAR HUMAN 100 UNIT/ML SC SCH ×7 (09:14→20:52)
[2017-02-16] MEDS: CALCIUM CARBONATE 500 MG TAB PO SCH (09:43)
[2017-02-16] MEDS: AQUAPHOR OINTMENT 3.5 OZ JAR TP SCH ×2 (09:43→20:52)
[2017-02-16] MEDS: ATORVASTATIN CALCIUM 20 MG TAB PO SCH (09:44)
[2017-02-16] MEDS: CHOLECALCIFEROL VIT D3 2,000 UNITS TAB/CAP PO SCH (09:44)
[2017-02-16] MEDS: ARIPiprazole 5 MG TAB PO SCH (09:44)
--- NOTE | 2017-02-16 13:13 | SOAPPROG ---
SOAP Progress Note Assessment/Plan: Assessment: Plan: 02/14/17 1058 ' UPDATE: Nursing reports pt has evidenced descriptive improvement over the weekend - complying with cares/meds, visible in milieu; beginning to attend groups; behaviorally stable. ON EXAM: presents as calm cooperative , conversant; blunted affect, depressive facies and mood but state he is felling a "little better"; open disclosure about further history and does acknowledge that his daily THC use dulls his thinking and has played a role in his ineffectiveness at work - has led to multiple job losses over past 4 years. He states his motivation to improve in the hospital and willingness to formulate definitive DC plan as he agrees seeing his psychiatrist q 8 wks is an insufficient community treatment plan; also accepts that attempting to get disability status won't work given his work history and treatability. ASSESSMENT/PLAN: incrementally less depressed b/w significant residual/ call to Dr Castillo pending to discuss case and medication planning; will increase Zoloft today to 100 mg qd. 02/15/17 10:43 DAY ' UPDATE: Nursing reports slow-paced progress continues; compliant with cares/meds ; residual vegetative sx but im;toving; remains isolative but gradually more visible in milieu and attending selective groups. 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 States he's not used THC for 3months, had been active with cocaine DIRECT SALES REPRESENTATIVE but will invest in full sobriety post DC. ASSESSMENT/PLAN: residual syndromal depession; slow-paced improvement/ Zoloft increased to 150 mg qam; case reviewed with Dr. Castillo; CP reviewed with Nursing 02/16/17 13:13 DAY UPDATE: ursing reports pt as improving with lessening syndromal depression past 24 hours; does withdraw to room when the unit gets too "high" with disruptive patients; otherwise compliant with cares/meds, attending groups if they're not disrupted by other patients; is selectively social. ON EXAM: presents as calm, cooperative, conversant; focus on treatment history, his problem of noncompliance post DC, current planning agenda across medical, psychiatric, and vocational domains; pt enthusiastic about family meeting tomorrow at 1300 to address DC planning; denies SI today ASSESSMENT/PLAN: continue improving course/ will increase Zoloft to 200 mg qam; continue reintegrative CP; finalize definitive DC plan and discuss in FM tomorrow Objective: Vital Signs Temp Pulse Resp BP Pulse Ox 36.7 C 90 14 107/58 L 97 02/16/17 06:00 02/16/17 06:00 02/16/17 06:00 02/16/17 06:00 02/16/17 06:00 ICD10 Worksheet Patient Problems: Problems Problem Status Onset Severe major depression Acute Hip pain Active Diabetes mellitus type 1 Acute Diabetes with ketoacidosis Acute Diabetic ketoacidosis Acute Hyperglycemia Acute Hypoglycemia due to type 1 diabetes mellitus Acute Major depressive disorder, recurrent episode, severe degree, without mention of psychotic behavior Acute
[2017-02-16] MEDS: SERTRALINE HCL 100 MG TAB PO SCH (14:26)
[2017-02-16] MEDS: INSULIN GLARGINE 100 UNITS/ML SYRINGE SC SCH (20:51)
[2017-02-16] MEDS: NORTRIPTYLINE HCL 25 MG CAP PO SCH (20:51)
[2017-02-17] MEDS: LEVOTHYROXINE 137 MCG TAB PO SCH (06:13)
[2017-02-17 06:15] VITALS: RESP 15
--- NOTE | 2017-02-17 06:39 | SOAPPROG ---
SOAP Progress Note Assessment/Plan: Assessment: Plan: 02/14/17 1058 ' UPDATE: Nursing reports pt has evidenced descriptive improvement over the weekend - complying with cares/meds, visible in milieu; beginning to attend groups; behaviorally stable. ON EXAM: presents as calm cooperative , conversant; blunted affect, depressive facies and mood but state he is felling a "little better"; open disclosure about further history and does acknowledge that his daily THC use dulls his thinking and has played a role in his ineffectiveness at work - has led to multiple job losses over past 4 years. He states his motivation to improve in the hospital and willingness to formulate definitive DC plan as he agrees seeing his psychiatrist q 8 wks is an insufficient community treatment plan; also accepts that attempting to get disability status won't work given his work history and treatability. ASSESSMENT/PLAN: incrementally less depressed b/w significant residual/ call to Dr Castillo pending to discuss case and medication planning; will increase Zoloft today to 100 mg qd. 02/15/17 10:43 DAY ' UPDATE: Nursing reports slow-paced progress continues; compliant with cares/meds ; residual vegetative sx but im;toving; remains isolative but gradually more visible in milieu and attending selective groups. ON EXAM: again blunted but cooperative; states SI diminished but not yet fully resolved; syndromal residual updated, meds discussed, ineffective engagement in medical/psychiatric rx engagement RESIDENTIAL YOUTH COUNSELOR discussed at length; anticipate involving family, [facility], and [facility] in formulating definitive DC plan which states he's ready to invest in. States he's not used THC for 3months, had been active with cocaine RESIDENTIAL YOUTH COUNSELOR but will invest in full sobriety post DC. ASSESSMENT/PLAN: residual syndromal depession; slow-paced improvement/ Zoloft increased to 150 mg qam; case reviewed with Dr. Castillo; CP reviewed with Nursing 02/16/17 13:13 DAY UPDATE: Nursing reports pt as improving with lessening syndromal depression past 24 hours; does withdraw to room when the unit gets too "high" with disruptive patients; otherwise compliant with cares/meds, attending groups if they're not disrupted by other patients; is selectively social. ON EXAM: presents as calm, cooperative, conversant; focus on treatment history, his problem of noncompliance post DC, current planning agenda across medical, psychiatric, and vocational domains; pt enthusiastic about family meeting tomorrow at 1300 to address DC planning; denies SI today; affect remains blunted and evidences residual mild dysphoria ASSESSMENT/PLAN: continue improving course/ will increase Zoloft to 200 mg qam; continue reintegrative CP; finalize definitive DC plan and discuss in FM tomorrow 02/17/17 DAY UPDATE: Objective: Vital Signs Temp Pulse Resp BP Pulse Ox 36.5 C 85 15 105/61 96 02/17/17 06:00 02/17/17 06:00 02/17/17 06:00 02/17/17 06:00 02/17/17 06:00 ICD10 Worksheet Patient Problems: Problems Problem Status Onset Severe major depression Acute Hip pain Active Diabetes mellitus type 1 Acute Diabetes with ketoacidosis Acute Diabetic ketoacidosis Acute Hyperglycemia Acute Hypoglycemia due to type 1 diabetes mellitus Acute Major depressive disorder, recurrent episode, severe degree, without mention of psychotic behavior Acute
[2017-02-17] MEDS: ATORVASTATIN CALCIUM 20 MG TAB PO SCH (08:07)
[2017-02-17] MEDS: CALCIUM CARBONATE 500 MG TAB PO SCH (08:07)
[2017-02-17] MEDS: ARIPiprazole 5 MG TAB PO SCH (08:07)
[2017-02-17] MEDS: CHOLECALCIFEROL VIT D3 2,000 UNITS TAB/CAP PO SCH (08:08)
[2017-02-17] MEDS: AQUAPHOR OINTMENT 3.5 OZ JAR TP SCH ×2 (08:09→20:41)
[2017-02-17] MEDS: SERTRALINE HCL 100 MG TAB PO SCH (08:20)
[2017-02-17] MEDS: INSULIN REGULAR HUMAN 100 UNIT/ML SC SCH ×7 (09:03→20:41)
--- NOTE | 2017-02-17 14:25 | SOAPPROG ---
SOAP Progress Note Assessment/Plan: Assessment: Plan: 02/14/17 1058 ' UPDATE: Nursing reports pt has evidenced descriptive improvement over the weekend - complying with cares/meds, visible in milieu; beginning to attend groups; behaviorally stable. ON EXAM: presents as calm cooperative , conversant; blunted affect, depressive facies and mood but state he is felling a "little better"; open disclosure about further history and does acknowledge that his daily THC use dulls his thinking and has played a role in his ineffectiveness at work - has led to multiple job losses over past 4 years. He states his motivation to improve in the hospital and willingness to formulate definitive DC plan as he agrees seeing his psychiatrist q 8 wks is an insufficient community treatment plan; also accepts that attempting to get disability status won't work given his work history and treatability. ASSESSMENT/PLAN: incrementally less depressed b/w significant residual/ call to Dr Castillo pending to discuss case and medication planning; will increase Zoloft today to 100 mg qd. 02/15/17 10:43 DAY ' UPDATE: Nursing reports slow-paced progress continues; compliant with cares/meds ; residual vegetative sx but im;toving; remains isolative but gradually more visible in milieu and attending selective groups. ON EXAM: again blunted but cooperative; states SI diminished but not yet fully resolved; syndromal residual updated, meds discussed, ineffective engagement in medical/psychiatric rx engagement CIVIL ENGINEER discussed at length; anticipate involving family, [facility], and [facility] in formulating definitive DC plan which states he's ready to invest in. States he's not used THC for 3months, had been active with cocaine CIVIL ENGINEER but will invest in full sobriety post DC. ASSESSMENT/PLAN: residual syndromal depession; slow-paced improvement/ Zoloft increased to 150 mg qam; case reviewed with Dr. Castillo; CP reviewed with Nursing 02/16/17 13:13 DAY UPDATE: Nursing reports pt as improving with lessening syndromal depression past 24 hours; does withdraw to room when the unit gets too "high" with disruptive patients; otherwise compliant with cares/meds, attending groups if they're not disrupted by other patients; is selectively social. ON EXAM: presents as calm, cooperative, conversant; focus on treatment history, his problem of noncompliance post DC, current planning agenda across medical, psychiatric, and vocational domains; pt enthusiastic about family meeting tomorrow at 1300 to address DC planning; denies SI today; affect remains blunted and evidences residual mild dysphoria ASSESSMENT/PLAN: continue improving course/ will increase Zoloft to 200 mg qam; continue reintegrative CP; finalize definitive DC plan and discuss in FM tomorrow 02/17/17 14:30 DAY UPDATE: Nursing reports continuing descriptive improvement thru DC planning phase; on direct exam in individual session and in family meeting presents as birhgter in mood, more spontaneous speech, focussed on following thru with DC planning; BS in 40's and then up to 146. Case reviewed with Dr. Velasquez who will review medical medications including insulin in preparation for dc tomorrow. ASSESSMENT/PLAN: continues improving course and progress in building first order insight/ will make final updosing in Zoloft and plan DC for tomorrow Objective: Vital Signs Temp Pulse Resp BP Pulse Ox 36.5 C 85 15 105/61 96 02/17/17 06:00 02/17/17 06:00 02/17/17 06:00 02/17/17 06:00 02/17/17 06:00 ICD10 Worksheet Patient Problems: Problems Problem Status Onset Severe major depression Acute Hip pain Active Diabetes mellitus type 1 Acute Diabetes with ketoacidosis Acute Diabetic ketoacidosis Acute Hyperglycemia Acute Hypoglycemia due to type 1 diabetes mellitus Acute Major depressive disorder, recurrent episode, severe degree, without mention of psychotic behavior Acute
[2017-02-17] MEDS ORDERED: INSULIN GLARGINE 100 UNITS/ML SYRINGE SC SCH (16:40)
[2017-02-17] MEDS ORDERED: INSULIN REGULAR HUMAN 100 UNIT/ML SC SCH (16:41)
--- NOTE | 2017-02-17 16:44 | SOAPPROG ---
SOAP Progress Note Assessment/Plan: Assessment: Hypothyroidism: very high TSH at 42 most likely represents non-compliance. Continue current levothyroxine dose. Advise repeat TSH in 4 - 6 weeks. Diabetes mellitus on insulin: fasting generally high, which would argue for increasing Lantus, however had low BS this morning at 43, so will decrease Lantus from 54 U at FLOWER to 50 U at HS. Will increase Regular form 7 U TID AC to 8 U TID AC. Will need close follow-up with PCP after discharge to improve glycemic control. 02/17/17 16:41 Subjective: Blood sugars and insulin dosing reviewed. Objective: Vital Signs Temp Pulse Resp BP Pulse Ox 36.5 C 85 15 105/61 96 02/17/17 06:00 02/17/17 06:00 02/17/17 06:00 02/17/17 06:00 02/17/17 06:00 ICD10 Worksheet Patient Problems: Problems Problem Status Onset Severe major depression Acute Hip pain Active Diabetes mellitus type 1 Acute Diabetes with ketoacidosis Acute Diabetic ketoacidosis Acute Hyperglycemia Acute Hypoglycemia due to type 1 diabetes mellitus Acute Major depressive disorder, recurrent episode, severe degree, without mention of psychotic behavior Acute
[2017-02-17] MEDS: NORTRIPTYLINE HCL 25 MG CAP PO SCH (20:40)
[2017-02-18 01:21] VITALS: BP 133/77; PULSE 89; TEMP 97.5; O2SAT 94
[2017-02-18] MEDS: LEVOTHYROXINE 137 MCG TAB PO SCH (05:58)
[2017-02-18] MEDS: INSULIN REGULAR HUMAN 100 UNIT/ML SC SCH ×2 (08:49→08:50)
[2017-02-18] MEDS: CALCIUM CARBONATE 500 MG TAB PO SCH (08:50)
[2017-02-18] MEDS: ATORVASTATIN CALCIUM 20 MG TAB PO SCH (08:50)
[2017-02-18] MEDS: CHOLECALCIFEROL VIT D3 2,000 UNITS TAB/CAP PO SCH (08:50)
[2017-02-18] MEDS: ARIPiprazole 5 MG TAB PO SCH (08:50)
[2017-02-18] MEDS: SERTRALINE HCL 100 MG TAB PO SCH (08:50)
[2017-02-18] MEDS: AQUAPHOR OINTMENT 3.5 OZ JAR TP SCH (08:51)
--- NOTE | 2017-02-18 08:58 | SOAPPROG ---
SOAP Progress Note Assessment/Plan: Assessment: Plan: 02/14/17 1058 ' UPDATE: Nursing reports pt has evidenced descriptive improvement over the weekend - complying with cares/meds, visible in milieu; beginning to attend groups; behaviorally stable. ON EXAM: presents as calm cooperative , conversant; blunted affect, depressive facies and mood but state he is felling a "little better"; open disclosure about further history and does acknowledge that his daily THC use dulls his thinking and has played a role in his ineffectiveness at work - has led to multiple job losses over past 4 years. He states his motivation to improve in the hospital and willingness to formulate definitive DC plan as he agrees seeing his psychiatrist q 8 wks is an insufficient community treatment plan; also accepts that attempting to get disability status won't work given his work history and treatability. ASSESSMENT/PLAN: incrementally less depressed b/w significant residual/ call to Dr Castillo pending to discuss case and medication planning; will increase Zoloft today to 100 mg qd. 02/15/17 10:43 DAY ' UPDATE: Nursing reports slow-paced progress continues; compliant with cares/meds ; residual vegetative sx but im;toving; remains isolative but gradually more visible in milieu and attending selective groups. ON EXAM: again blunted but cooperative; states SI diminished but not yet fully resolved; syndromal residual updated, meds discussed, ineffective engagement in medical/psychiatric rx engagement ART PROFESSOR discussed at length; anticipate involving family, [facility], and [facility] in formulating definitive DC plan which states he's ready to invest in. States he's not used THC for 3months, had been active with cocaine ART PROFESSOR but will invest in full sobriety post DC. ASSESSMENT/PLAN: residual syndromal depession; slow-paced improvement/ Zoloft increased to 150 mg qam; case reviewed with Dr. Castillo; CP reviewed with Nursing 02/16/17 13:13 DAY UPDATE: Nursing reports pt as improving with lessening syndromal depression past 24 hours; does withdraw to room when the unit gets too "high" with disruptive patients; otherwise compliant with cares/meds, attending groups if they're not disrupted by other patients; is selectively social. ON EXAM: presents as calm, cooperative, conversant; focus on treatment history, his problem of noncompliance post DC, current planning agenda across medical, psychiatric, and vocational domains; pt enthusiastic about family meeting tomorrow at 1300 to address DC planning; denies SI today; affect remains blunted and evidences residual mild dysphoria ASSESSMENT/PLAN: continue improving course/ will increase Zoloft to 200 mg qam; continue reintegrative CP; finalize definitive DC plan and discuss in FM tomorrow 02/17/17 14:30 DAY 8 35' UPDATE: Nursing reports continuing descriptive improvement thru DC planning phase; on direct exam in individual session and in family meeting presents as birhgter in mood, more spontaneous speech, focussed on following thru with DC planning; BS in 40's and then up to 146. Case reviewed with Dr. Velasquez who will review medical medications including insulin in preparation for dc tomorrow. ASSESSMENT/PLAN: continues improving course and progress in building first order insight/ will make final updosing in Zoloft and plan DC for tomorrow 02/18/17 08:49 DAY 9/ Brief Discharge Note UPDATE: Nursing reports pt has sustained stabilizing course; pt is enhusiastic about DC on Nursing contacts. ON EXAM: pt presents as calm, cooperative, conversant; mood neutral, denies any re-emergence of SI; reviews family conference from yesterday and accuratrely remembers primary comments about change goals and role of family in DC plan; also able to identify other relevant domains of DC plan including psychiatric planning medical care followup, work rehab strategies and resources, social and avocational goals a/w identified resources. meds reviewed final time including management plan for DM. Pt safe and stable for DC ASSESSMENT/PLAN: ready for DC followup appointments for [facility] and [facility] medications as referenced; scripts for 30 days for Lantus, Regular insulin, Zoloft, and Abilifyu; other meds available in home supply see DC Summary Objective: Vital Signs Temp Pulse Resp BP Pulse Ox 36.4 C 89 15 133/77 H 94 02/18/17 01:21 02/18/17 01:21 02/18/17 01:21 02/18/17 01:21 02/18/17 01:21 ICD10 Worksheet Patient Problems: Problems Problem Status Onset Severe major depression Acute Hip pain Active Diabetes mellitus type 1 Acute Diabetes with ketoacidosis Acute Diabetic ketoacidosis Acute Hyperglycemia Acute Hypoglycemia due to type 1 diabetes mellitus Acute Major depressive disorder, recurrent episode, severe degree, without mention of psychotic behavior Acute
--- NOTE | 2017-02-22 09:09 | BDS ---
[f rep st] BEHAVIORAL HEALTH DISCHARGE SUMMARY PATIENT IDENTIFICATION: The patient presented as a 56-year-old, twice , white male, who was admitted to [address] [place] [address] on an M1 hold for complaints of a depressive crisis including suicidal ideation associated with a plan to overdose on insulin; patient also presented with severe drug abuse problems associated with cocaine and marijuana. The patient is an open client with [facility] and sees Dr. Castillo, for medication management. DISCHARGE DIAGNOSES: AXIS I: 1. Major Depressive Disorder, chronic history, recurrent pattern, exacerbation present on admission in early phase improvement with resolution of suicidal ideation. 2. THC Use Disorder, chronic, severe, inactive for a period of 3 months prior to admission. 3. Cocaine Use Disorder, intermittent, moderate, active prior to admission. AXIS II: Prominent passive-dependent traits. AXIS III: 1. Generalized pruritic rash, etiology unclear; improving at time of discharge. 2. Dyscontrolled hypothyroidism secondary to medication noncompliance prior to admission; admission TSH 42. 3. Dyscontrolled Diabetes Mellitus, type 1 secondary to noncompliance with insulin; blood sugar 383 on admission; improved to low 200s at time of discharge. 4. Status post history of ketoacidosis, history of hypoglycemia, osteoporosis. AXIS IV: Stressors associated with endogenous breakthrough depressive symptoms on home medications, patient discontinued all home medications 4 weeks prior to admission; social isolation; financial stress; unemployment. AXIS V: Discharge Global Assessment of Functioning 45. DISCHARGE PLAN: 1. Patient discharged to return to live in his apartment in a home owned by a close male friend, who also lives in a separate apartment. 2. [facility], appointment follow up with Dr. Castillo on 05/23 at 13:00; follow up with [facility] on 02/19; appointment to facilitate patient's referral to psychotherapist and select other [facility] resources including rehab services and selective topical groups. 3. Medical followup per [facility]. Patient to call for appointment post discharge. 4. [facility], in process at discharge. 5. Medications at discharge, as referenced below. REASON FOR ADMISSION: As referenced, the patient presented with a chronic history for syndromal depression of varying intensity, extending over a period of 20+ years. He had initiated outpatient treatment contact with psychiatry 20 years ago. He began to utilize prescribed medications and psychotherapy. The patient stated he continued to take prescribed medications relatively consistently over the interim extended period. He did not maintain psychotherapeutic treatment after a brief initial phase. He also has a history of 5 inpatient hospitalizations between 2011 and 2013 for recurrent depressive crisis and suicidal thinking. The patient denied any history of suicide attempts. More recently, the patient experienced a breakthrough exacerbation of depressive symptoms including dysphoric mood, diminished psychomotor energy, social withdrawal, anhedonia and persistent suicidal ideation. 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 The patient also was sporadically using cocaine, maintaining his diabetic diet. He unilaterally stopped his home medications including his insulin, Abilify 5 mg daily, and Zoloft 50 mg daily, and nortriptyline 75 mg at bedtime. Over the 4 weeks after stopping medications, the patient's depressive syndrome reached crisis proportions, including a suicide plan to kill himself with an insulin overdose. Patient's roommate called patient's brother in [place] and both men encouraged the patient to seek help, ultimately roommate drove him to the [facility] Emergency room where he was medically cleared, seen in consultation by [facility], and sent on for [address] [place] [address] admission for complaints of his syndromal acuity and suicidal ideation. Lab screens were notable for an elevated TSH of 42.2, elevated blood glucose of 386. SIGNIFICANT MEDICAL FINDINGS: On physical exam in the emergency room and post admission to [address] [place] [address], the patient complained of generalized pruritus and was known to have an excoriated area on his scrotum. Lab screens included a CBC, BMP, liver functions, HIV antibodies 1 and 2, toxic screen, blood alcohol level , climbing hemoglobin, and a serum vitamin D level. Notable findings included the elevated TSH referenced above at 42.2, glycohemoglobin of 10, diminished 25- hydroxy vitamin D at 16.8 and elevated blood sugar of 386. The patient was followed closely by Medicine during his inpatient stay. His complaints of pruritus resolved at time of discharge, with no clear etiology noted. Blood sugars dropped to the 140s with patient complying with his insulin regimen. The patient was resumed on his Synthroid 137 mg daily. He remained medically stable throughout his inpatient course. HOSPITAL COURSE: The patient engaged his psychiatric inpatient treatment plan from the outset. He utilized individual contacts with myself to complete his workup as well as utilized the sessions for brief psychotherapeutic contacts which facilitated symptom relief. He also was a quiet presence in the social milieu and attended groups, driving affective psychosocial support. Thirdly, he had supportive family visits from his 30-year-old daughter and 2 ex-wives. Prior to discharge, his roommate and male friend attended a discharge planning meeting along with 1 ex and his 2 children, a son age 18 and a daughter 30. He was resumed on his pre-admission psychoactive medications and the Zoloft dosing was stepped up to 200 mg at time of discharge. Workup included the presence of a chronically depressed self-image which was formed in patient' s early years in the context of living with a hypercritical father. His drug use problems are identified and included his complicating depression. He been a daily THC smoker for 20+ years until stopping 3 months ago. His use of cocaine was intermittent, sporadic, and clearly a self medicating intervention. Patient developed first order insight and understanding the destructive interference of his drug use on resolving his depression. He also came to understand clearly the need for a comprehensive treatment plan in the community which would include adding a daily structure and utilizing family support for part of this. With sufficient recovery, and finalization of discharge planning , the patient was deemed ready for discharge. CONDITION ON DISCHARGE: Mental status exam: Final contact paper patient presented as calm, cooperative, conversant. His mood state was neutral. There was no evidence for residual suicidal thinking. His range of affect had normalized and expression of affect remained mildly blunted. He demonstrated full cognition. He was able to review his improving course, discharge plan with associated goals, and the discharge medications in detail. He understood neglecting his diabetes and hypothyroidism would have contributed negatively to his depressive syndrome and was fully motivated to invest in his followup psychiatric and medical treatment planning. He understood during his course that he had met with the community per person representing applying him to long- term Medicaid which would cover his [facility] and understood that planning would close shortly after his discharge. He was deemed sufficiently stabilized for safe discharge. RISKS: At discharge the patient was deemed low risk for self-harm, harm to others, or inability to manage safely in the community. ASSETS: Current state of improvement and investment in followup care, links to definitive discharge plan in place with appointment scheduled, and endorsement of followup treatment by supportive family members. DISCHARGE MEDICATIONS: Abilify 5 mg p.o. daily, Lipitor 20 mg p.o. q.a.m., calcium carbonate 100 mg p.o. daily, vitamin D3 5000 units p.o. daily, Lantus insulin 50 units s.c. and h.s., Synthroid 137 mcg p.o. daily, mineral oil, Aquaphor 1 application topically b.i.d., Pamelor 75 mg p.o. h.s., Zoloft 200 mg p.o. daily. Patient given 30 day scripts for selected medications not present in his home supply. DISCHARGE LEGAL STATUS: Voluntary. /[id number]/MODL MTDD
== END 2017-02-18 11:05 | disposition home or self-care (01) | DRG 885 ==
LOC: BBEH 02-10 12:45
PROVIDERS: ADMIT Psychiatry & Neurology Psychiatry; ATTEND Psychiatry & Neurology Psychiatry
DX: F33.9 Major depressive disorder, recurrent, unspecified (principal); F12.90 Cannabis use, unspecified, uncomplicated; F14.90 Cocaine use, unspecified, uncomplicated; L29.9 Pruritus, unspecified; E10.65 Type 1 diabetes mellitus with hyperglycemia; E03.9 Hypothyroidism, unspecified; Z91.128 Patient's intentional underdosing of medication regimen for other reason
CPT/HCPCS: 80305; 82947-QW; G0480; J1815

== ENCOUNTER 2017-05-15 13:58 | Emergency (ER) | payer MEDICAID ==
[2017-05-15] MEDS ORDERED: NS 1,000 ML IV ONE (14:20)
[2017-05-15] MEDS ORDERED: INSULIN REGULAR HUMAN 100 UNIT/ML IVP ONE (14:20)
--- NOTE | 2017-05-15 14:25 | EDPHY ---
H & P Stated Complaint: Out of long lasting insulin, Blood sugar 400 now. - Personal History Current Tetanus Diphtheria and Acellular Pertussis (TDAP): Yes Tetanus Vaccine Date: 2011 - Medical/Surgical History Hx Asthma: No Hx Chronic Respiratory Disease: No Hx Diabetes: Yes Hx Cardiac Disease: No Hx Renal Disease: No Hx Cirrhosis: No Hx Alcoholism: No Hx HIV/AIDS: No Hx Splenectomy or Spleen Trauma: No Other PMH: pmh- depression/bipolar, IDDM, hypothyroid, hld,. osteoporosis, peripheral neuropathy. psh- parathyroid resection, orif femur - Social History Smoking Status: Former smoker Time Seen by Provider: 05/15/17 14:11 HPI/ROS: CHIEF COMPLAINT: "I am out of insulin" HISTORY OF PRESENT ILLNESS: 57-year-old male history of insulin-dependent diabetes ran out of his Lantus 54 units daily, 2 days ago, was waiting on pre approval from Medicaid blood sugar 400 yesterday and 300 today, came to the ER for evaluation. Overall states that he is feeling well. No nausea or vomiting. No abdominal pain. No fever or chills. No flu-like symptoms. No arthralgias no myalgias. No recent illness. PRIMARY CARE PROVIDER: primary object oriented developer is at [facility] REVIEW OF SYSTEMS: A ten point review of systems was performed and is negative with the exception of the items mentioned in the HPI PAST MEDICAL & SURGICAL HISTORY: Insulin-dependent diabetes. Hypothyroidism. Depression. SOCIAL HISTORY: nonsmoker PHYSICAL EXAM (Prior to examination, patient consented to physical exam, hands were washed and my usual and customary physical exam procedures followed) 1) GENERAL: Well-developed, well-nourished, alert and oriented. Appears to be in no acute distress. 2) HEAD: Normocephalic, atraumatic 3) HEENT: Pupils equal, round, reactive to light bilaterally. Sclera anicteric. Nasopharynx, oropharynx, clear, no lesions. Dry mucous membranes 4) NECK: Full range of motion, no meningeal signs. 5) LUNGS: Clear auscultation bilaterally, no wheezes, no rhonchi, no retractions. 6) HEART: Regular rate and rhythm, no murmur, no heave, no gallop. 7) ABDOMEN: No guarding, no rebound, no focal tenderness, negative McBurney's, 8) MUSCULOSKELETAL: No peripheral edema or discoloration. 9) BACK: no visual or palpable abnormality. 10) SKIN: No rash, no petechiae. 11) Psychiatric: Patient is oriented X 3, there is no agitation. DIFFERENTIAL DIAGNOSIS: in no particular include but limited to hyperglycemia, DKA, hyperosmolar hyperglycemic state (Theodore,[place] Gloria) Constitutional: Initial Vital Signs Temperature (C) 36.4 C 05/15/17 13:59 Heart Rate 103 H 05/15/17 13:59 Respiratory Rate 18 05/15/17 13:59 Blood Pressure 124/75 H 05/15/17 13:59 O2 Sat (%) 95 05/15/17 13:59 O2 Delivery Mode Room Air Allergies/Adverse Reactions: Cephalosporins Allergy (Severe, Verified 02/08/17 14:33) Swelling/neck,face,throat Home Medications: Medication Instructions Recorded ARIPiprazole [Abilify 5 mg (*)] 5 mg PO DAILY 07/17/12 Calcium Carbonate [Oyster Shell 1,000 mg PO DAILY 10/30/15 Calcium 500 mg (*)] Atorvastatin Calcium [Lipitor 20 20 mg PO DAILY 02/10/17 mg (*)] Cholecalciferol Vit D3 [Vitamin D3 5,000 units PO DAILY #0 each 02/18/17 2000 units tab (OTC)] Insulin Glargine [Lantus 100 50 units SC HS #0 ml 02/18/17 UNITS/ML (*)] Levothyroxine [Synthroid 137 mcg 137 mcg PO DAILY@0600 #0 tab 02/18/17 (*)] Mineral Oil/Pet Hy-Phl [Aquaphor 1 natalee TP BID #0 jar 02/18/17 Ointment (*)] Nortriptyline HCl [Pamelor 25 mg 75 mg PO HS #0 cap 02/18/17 (*)] Sertraline HCl [Zoloft 100mg (*)] 200 mg PO DAILY #0 tab 02/18/17 Insulin Glargine [Lantus 100 54 unit SC DAILY #0 ml 05/15/17 UNITS/ML (*)] Medical Decision Making Other Provider: The patient was evaluated and managed by the Physician Automation Machine Operator/ Nurse Practitioner. I discussed the patient's presentation and course with the midlevel provider with them and agree with the evaluation. My co-signature indicates that I have reviewed this chart and I agree with the findings and plan of care as documented. I am the secondary supervising physician. (Alisha Whitehead) - Data Points Laboratory Results: Laboratory Results 05/15/17 14:13 05/15/17 16:06 05/15/17 05/15/17 05/15/17 16:06 14:14 14:13 WBC RBC Hgb POC Hgb 16.7 gm/dL gm/dL (13.7-17.5) Hct POC Hct 49 % % (40-51) MCV MCH MCHC RDW Plt Count MPV Neut % (Auto) Lymph % (Auto) [place] % (Auto) Eos % (Auto) Baso % (Auto) Nucleat RBC Rel Count Absolute Neuts (auto) Absolute Lymphs (auto) Absolute Monos (auto) Absolute Eos (auto) Absolute Basos (auto) Absolute Nucleated RBC Immature Gran % Immature Gran # POC Sodium 132 mEq/L L mEq/L (134-144) Sodium 135 mEq/L mEq/L 131 mEq/L L mEq/L (134-144) (134-144) POC Potassium 4.3 mEq/L mEq/L (3.3-5.0) Potassium 3.8 mEq/L mEq/L 4.7 mEq/L mEq/L (3.5-5.2) (3.5-5.2) POC Chloride 92 mEq/L L mEq/L (97-110) Chloride 102 mEq/L mEq/L 94 mEq/L L mEq/L (97-110) (97-110) Carbon Dioxide 21 mEq/l L mEq/l 21 mEq/l L mEq/l (22-31) (22-31) Anion Gap 12 mEq/L mEq/L 16 mEq/L mEq/L (8-16) (8-16) POC BUN 23 mg/dL mg/dL (7-23) BUN 19 mg/dL mg/dL 22 mg/dL mg/dL (7-23) (7-23) Creatinine 0.9 mg/dL mg/dL 1.1 mg/dL mg/dL (0.7-1.3) (0.7-1.3) POC Creatinine 1.1 mg/dL mg/dL (0.7-1.3) Estimated GFR > 60 > 60 Glucose 94 mg/dL D mg/dL 386 mg/dL H mg/dL (70-100) (70-100) POC Glucose 361 mg/dL H mg/dL (70-100) Calcium 8.9 mg/dL mg/dL 9.9 mg/dL mg/dL (8.5-10.4) (8.5-10.4) Beta-Hydroxybutyrate 0.46 mmol/L H mmol/L (0.02-0.27) 05/15/17 14:13 WBC 8.55 10^3/uL 10^3/uL (3.80-9.50) RBC 5.23 10^6/uL 10^6/uL (4.40-6.38) Hgb 15.2 g/dL g/dL (13.7-17.5) POC Hgb Hct 44.6 % % (40.0-51.0) POC Hct MCV 85.3 fL fL (81.5-99.8) MCH 29.1 pg pg (27.9-34.1) MCHC 34.1 g/dL g/dL (32.4-36.7) RDW 13.4 % % (11.5-15.2) Plt Count 293 10^3/uL 10^3/uL (150-400) MPV 10.3 fL fL (8.7-11.7) Neut % (Auto) 62.7 % % (39.3-74.2) Lymph % (Auto) 19.6 % % (15.0-45.0) [place] % (Auto) 7.1 % % (4.5-13.0) Eos % (Auto) 9.0 % H % (0.6-7.6) Baso % (Auto) 1.2 % % (0.3-1.7) Nucleat RBC Rel Count 0.0 % % (0.0-0.2) Absolute Neuts (auto) 5.36 10^3/uL 10^3/uL (1.70-6.50) Absolute Lymphs (auto) 1.68 10^3/uL 10^3/uL (1.00-3.00) Absolute Monos (auto) 0.61 10^3/uL 10^3/uL (0.30-0.80) Absolute Eos (auto) 0.77 10^3/uL H 10^3/uL (0.03-0.40) Absolute Basos (auto) 0.10 10^3/uL 10^3/uL (0.02-0.10) Absolute Nucleated RBC 0.00 10^3/uL 10^3/uL (0-0.01) Immature Gran % 0.4 % % (0.0-1.1) Immature Gran # 0.03 10^3/uL 10^3/uL (0.00-0.10) POC Sodium Sodium POC Potassium Potassium POC Chloride Chloride Carbon Dioxide Anion Gap POC BUN BUN Creatinine POC Creatinine Estimated GFR Glucose POC Glucose Calcium Beta-Hydroxybutyrate Medications Given: Discontinued Medications Sodium Chloride (Ns) 1,000 mls @ 0 mls/hr IV ONCE ONE; Wide Open PRN Reason: Protocol Stop: 05/15/17 14:21 Last Admin: 05/15/17 14:29 Dose: 1,000 mls Insulin Human Regular (Humulin R) 10 unit IVP EDNOW ONE Stop: 05/15/17 14:21 Last Admin: 05/15/17 14:28 Dose: 10 unit Point of Care Test Results: 05/15/17 14:14 POC Sodium 132 L POC Potassium 4.3 POC Chloride 92 L POC BUN 23 POC Creatinine 1.1 POC Glucose 361 H Departure - Departure Disposition: Home, Routine, Self-Care Clinical Impression: Hyperglycemia Condition: Good Instructions: Diabetic Hyperglycemia (ED) Referrals: DR SHAWNA [Other] - 1-2 days without fail Prescriptions: Insulin Glargine [Lantus 100 UNITS/ML (*)] 54 unit SC DAILY #0 ml
[2017-05-15 14:33] LABS: % IMMATURE GRANULYOCYTES 0.4 % (0.0-1.1); ABSOLUTE IMMATURE GRANULOCYTES 0.03 10^3/uL (0.00-0.10); ADD DIFF? NO; ADD MORPH? NO; ADD SCAN? NO; ATYPICAL LYMPHOCYTE FLAG 0 (0-99); FRAGMENT RBC FLAG 0 (0-99); HEMATOCRIT 44.6 % (40.0-51.0); HEMOGLOBIN 15.2 g/dL (13.7-17.5); LEFT SHIFT FLG 0 (0-99); LIPEMIA HEMOLYSIS FLAG 90 (0-99); MEAN CELL HEMOGLOBIN 29.1 pg (27.9-34.1); MEAN CELL HEMOGLOBIN CONCENTR. 34.1 g/dL (32.4-36.7); MEAN CELL VOLUME 85.3 fL (81.5-99.8); MEAN PLATELET VOLUME 10.3 fL (8.7-11.7); PLATELET CLUMPS FLAG 0 (0-99); PLATELET COUNT 293 10^3/uL (150-400); RED BLOOD CELL COUNT 5.23 10^6/uL (4.40-6.38); RED CELL DISTRIBUTION WIDTH 13.4 % (11.5-15.2)
[2017-05-15 14:47] LABS: ANION GAP 16 mEq/L (8-16); CALCIUM 9.9 mg/dL (8.5-10.4); CARBON DIOXIDE 21 mEq/l (22-31); CHLORIDE 94 mEq/L (97-110); CREATININE 1.1 mg/dL (0.7-1.3); GLOMERULAR FILTRATION RATE > 60; GLUCOSE 386 mg/dL (70-100); POTASSIUM 4.7 mEq/L (3.5-5.2); SODIUM 131 mEq/L (134-144)
[2017-05-15 15:04] LABS: B-HYDROXYBUTYRATE 0.46 mmol/L (0.02-0.27)
[2017-05-15 16:26] LABS: ANION GAP 12 mEq/L (8-16); CALCIUM 8.9 mg/dL (8.5-10.4); CARBON DIOXIDE 21 mEq/l (22-31); CHLORIDE 102 mEq/L (97-110); CREATININE 0.9 mg/dL (0.7-1.3); GLOMERULAR FILTRATION RATE > 60; GLUCOSE 94 mg/dL (70-100); POTASSIUM 3.8 mEq/L (3.5-5.2); SODIUM 135 mEq/L (134-144)
[2017-05-15 17:08] VITALS: BP 124/66; PULSE 72; RESP 14; TEMP 98.6; O2SAT 98
== END 2017-05-15 17:10 | disposition home or self-care (01) ==
DX: E11.65 Type 2 diabetes mellitus with hyperglycemia (principal); E86.9 Volume depletion, unspecified; Z79.4 Long term (current) use of insulin; Z87.891 Personal history of nicotine dependence
CPT/HCPCS: 82947-QW; 96374; J1815